=== PATIENT | male | born 1970 | race Caucasian/White ===

== ENCOUNTER 2024-03-17 14:43 | Outpatient (CLI) | payer OTHER | END 2024-03-17 14:44 | disposition home or self-care (01) | LOC: MRI 14:43 | PROVIDERS: ATTEND Family Medicine | DX: R20.2 Paresthesia of skin (principal); R90.82 White matter disease, unspecified | CPT/HCPCS: 70551 ==

== ENCOUNTER 2024-12-15 21:45 | Inpatient (IN) | payer OTHER ==
[2024-12-15] MEDS ORDERED: Cefepime 2 GM VIAL ONE (23:23)
[2024-12-15 23:33] LABS: #Basophils 0.04 10x3/uL (0.0-0.2); #Eosinophils 0.18 10x3/uL (0.0-0.7); #Monocytes 0.72 10x3/uL (0.11-0.59); #Neutrophils 11.50 10x3/uL (1.40-6.50); %Basophils 0.3 % (0.0-1.0); %Eosinophils 1.3 % (0.0-10.0); %Lymphocytes 10.9 % (21.0-51.0); %Monocytes 5.1 % (0.0-10.0); %Neutrophils 81.8 % (42.0-75.0); Hematocrit 35.7 % (42.0-52.0); Hemoglobin 11.8 g/dL (14.0-18.0); Mean Corpuscular Hemoglobin 31.4 pg (27.0-31.0); Mean Corpuscular Volume 94.9 fL (78.0-98.0); Platelet Count 284 10x3/uL (130-400); Red Blood Cell (RBC) Count 3.76 mill/uL (4.70-6.10); White Blood Cell (WBC) Count 14.05 10x3/uL (4.8-10.8)
[2024-12-15 23:47] LABS: ALT (SGPT) 20 U/L (Less than 45); AST (SGOT) 47 U/L (11-34); Albumin 3.4 g/dL (3.1-4.5); Alkaline Phosphatase 96 U/L (40-110); Anion Gap 17 mmol/L (10-20); BUN (Urea Nitrogen) 30 mg/dL (8.4-25.7); Bilirubin, Total 0.3 mg/dL (0.3-1.2); Calc. Creatinine Clearance 0 mL/min (70-130); Calcium 9.5 mg/dL (7.8-10.44); Carbon Dioxide 25 mmol/L (22-29); Chloride 100 mmol/L (98-107); Globulin 4.6 g/dL (2.4-3.5); Glucose 152 mg/dL (70-105); Potassium 4.5 mmol/L (3.5-5.1); Sodium 137 mmol/L (136-145)
[2024-12-16 01:28] LABS: Bacteria/HPF None Seen HPF (None Seen); CAUTI Indications for Culture Fever or rigors; Glucose, Urine (Dipstick) Greater than 1000 mg/dL (Negative); Leukocyte Negative Leu/uL (Negative); Protein, Urine (Dipstick) 10 mg/dL (Neg-Trace); RBC/HPF None Seen HPF (0-3); Specific Gravity, Urine 1.018 (1.002-1.036); WBC/HPF 0-3 HPF (0-3)
[2024-12-16 01:32] LABS: Urine Culture Reflex No No
[2024-12-16] MEDS ORDERED: Glucagon 1 MG/ML KIT IM PRN (02:19)
[2024-12-16] MEDS ORDERED: Dextrose 50% Abboject 50 ML SYRINGE SLOW IVP PRN (02:19)
[2024-12-16] MEDS ORDERED: Acetaminophen 325 MG TAB PO PRN (02:20)
[2024-12-16] MEDS ORDERED: Senokot S 8.6-50 MG TAB PO PRN (02:21)
[2024-12-16] MEDS ORDERED: Calcium Carbonate 500 MG ChewTAB PO PRN (02:21)
[2024-12-16] MEDS ORDERED: VANCOMYCIN IVPB PRN (02:23)
[2024-12-16 03:30] LABS: #Basophils 0.03 10x3/uL (0.0-0.2); #Eosinophils 0.15 10x3/uL (0.0-0.7); #Monocytes 0.69 10x3/uL (0.11-0.59); #Neutrophils 11.24 10x3/uL (1.40-6.50); %Basophils 0.2 % (0.0-1.0); %Eosinophils 1.1 % (0.0-10.0); %Lymphocytes 10.0 % (21.0-51.0); %Monocytes 5.1 % (0.0-10.0); %Neutrophils 82.8 % (42.0-75.0); Hematocrit 34.5 % (42.0-52.0); Hemoglobin 11.2 g/dL (14.0-18.0); Mean Corpuscular Hemoglobin 30.9 pg (27.0-31.0); Mean Corpuscular Volume 95.3 fL (78.0-98.0); Platelet Count 256 10x3/uL (130-400); Red Blood Cell (RBC) Count 3.62 mill/uL (4.70-6.10); White Blood Cell (WBC) Count 13.58 10x3/uL (4.8-10.8)
[2024-12-16] MEDS ORDERED: Acetaminophen/Codeine 30-300mg Tablet ONE (03:36)
[2024-12-16] MEDS: Acetaminophen/Codeine 30-300mg Tablet PO PRN (03:41)
[2024-12-16 03:42] LABS: Anion Gap 13 mmol/L (10-20); BUN (Urea Nitrogen) 27 mg/dL (8.4-25.7); Calc. Creatinine Clearance 0 mL/min (70-130); Calcium 9.0 mg/dL (7.8-10.44); Carbon Dioxide 24 mmol/L (22-29); Chloride 102 mmol/L (98-107); Glucose 149 mg/dL (70-105); Potassium 3.9 mmol/L (3.5-5.1); Sodium 135 mmol/L (136-145)
[2024-12-16] MEDS: VANCOMYCIN 2 GRAM/400 ML Premix BAG IVPB SCH (06:07)
[2024-12-16 07:38] VITALS: BMI 30.7
[2024-12-16] MEDS ORDERED: Lisinopril 20 MG TAB ONE (08:46)
[2024-12-16] MEDS ORDERED: cefTRIAXone (ROCEPHIN) 2 GM VIAL ONE (08:46)
[2024-12-16] MEDS ORDERED: Vancomycin 1 GM in Premix 1 BAG IVPB SCH (09:00)
[2024-12-16] MEDS: Lisinopril 20 MG TAB PO SCH ×2 (09:11→12:20)
[2024-12-16] MEDS: Clotrimazole 1 % Cream 30 GM TUBE TOP SCH (09:18)
[2024-12-16] MEDS: cefTRIAXone\\ROCEPHIN 2 GM in Sodium Chloride 0.9% 100 ML IVPB SCH (09:58)
[2024-12-16] MEDS ORDERED: hydrALAZINE 20 MG/ML VIAL SLOW IVP PRN (10:47)
[2024-12-16] MEDS: metFORMIN 500 MG TAB PO SCH ×2 (12:20→17:54)
[2024-12-16] MEDS ORDERED: Vancomycin 1.5 GM / NS 500 ML VIAL-2-BAG IVPB SCH (18:00)
[2024-12-16] MEDS: Linezolid 600 MG TAB PO SCH (21:12)
[2024-12-17] MEDS: Levothyroxine 150 MCG TAB PO SCH (05:29)
[2024-12-17 07:05] LABS: #Basophils 0.07 10x3/uL (0.0-0.2); #Eosinophils 0.17 10x3/uL (0.0-0.7); #Monocytes 0.76 10x3/uL (0.11-0.59); #Neutrophils 13.58 10x3/uL (1.40-6.50); %Basophils 0.4 % (0.0-1.0); %Eosinophils 1.1 % (0.0-10.0); %Lymphocytes 7.4 % (21.0-51.0); %Monocytes 4.8 % (0.0-10.0); %Neutrophils 85.5 % (42.0-75.0); Hematocrit 36.4 % (42.0-52.0); Hemoglobin 12.1 g/dL (14.0-18.0); Mean Corpuscular Hemoglobin 30.9 pg (27.0-31.0); Mean Corpuscular Volume 93.1 fL (78.0-98.0); Platelet Count 272 10x3/uL (130-400); Red Blood Cell (RBC) Count 3.91 mill/uL (4.70-6.10); White Blood Cell (WBC) Count 15.89 10x3/uL (4.8-10.8)
[2024-12-17 07:21] LABS: Vancomycin, Random 6.9 ug/mL (See Comment)
[2024-12-17 07:29] LABS: Anion Gap 14 mmol/L (10-20); BUN (Urea Nitrogen) 19 mg/dL (8.4-25.7); Calc. Creatinine Clearance 102 mL/min (70-130); Calcium 9.2 mg/dL (7.8-10.44); Carbon Dioxide 25 mmol/L (22-29); Cardiac Risk 6.3 (Less than 4.5); Chloride 97 mmol/L (98-107); Cholesterol 176 mg/dl (< 200 Desired); Glucose 104 mg/dL (70-105); HDL Cholesterol 28 mg/dL (>60 Neg Risk); LDL Cholesterol, Calculated 117 mg/dL; Potassium 4.0 mmol/L (3.5-5.1); Sodium 132 mmol/L (136-145); Triglycerides 157 mg/dL (Less than 150)
[2024-12-17 07:38] LABS: CRP, High Sensitivity at Bryan 18.65 mg/dL (< or = 0.5)
[2024-12-17] MEDS: Lisinopril 20 MG TAB PO SCH (09:14)
[2024-12-17] MEDS: HYDROcodone/Acetaminophen 7.5/325 mg Tablet PO PRN (09:23)
[2024-12-17] MEDS: Gabapentin 300 MG CAP PO SCH ×2 (12:24→20:16)
[2024-12-18 06:23] LABS: #Basophils 0.06 10x3/uL (0.0-0.2); #Eosinophils 0.30 10x3/uL (0.0-0.7); #Monocytes 0.77 10x3/uL (0.11-0.59); #Neutrophils 11.81 10x3/uL (1.40-6.50); %Basophils 0.4 % (0.0-1.0); %Eosinophils 2.0 % (0.0-10.0); %Lymphocytes 12.0 % (21.0-51.0); %Monocytes 5.2 % (0.0-10.0); %Neutrophils 79.1 % (42.0-75.0); Hematocrit 37.4 % (42.0-52.0); Hemoglobin 12.3 g/dL (14.0-18.0); Mean Corpuscular Hemoglobin 30.9 pg (27.0-31.0); Mean Corpuscular Volume 94.0 fL (78.0-98.0); Platelet Count 312 10x3/uL (130-400); Red Blood Cell (RBC) Count 3.98 mill/uL (4.70-6.10); White Blood Cell (WBC) Count 14.93 10x3/uL (4.8-10.8)
[2024-12-18] MEDS: Gabapentin 300 MG CAP PO SCH ×2 (10:45→19:53)
[2024-12-19 06:15] LABS: #Basophils 0.05 10x3/uL (0.0-0.2); #Eosinophils 0.31 10x3/uL (0.0-0.7); #Monocytes 0.58 10x3/uL (0.11-0.59); #Neutrophils 7.33 10x3/uL (1.40-6.50); %Basophils 0.5 % (0.0-1.0); %Eosinophils 3.1 % (0.0-10.0); %Lymphocytes 15.6 % (21.0-51.0); %Monocytes 5.8 % (0.0-10.0); %Neutrophils 73.4 % (42.0-75.0); Hematocrit 39.5 % (42.0-52.0); Hemoglobin 12.7 g/dL (14.0-18.0); Mean Corpuscular Hemoglobin 30.7 pg (27.0-31.0); Mean Corpuscular Volume 95.4 fL (78.0-98.0); Platelet Count 346 10x3/uL (130-400); Red Blood Cell (RBC) Count 4.14 mill/uL (4.70-6.10); White Blood Cell (WBC) Count 9.99 10x3/uL (4.8-10.8)
[2024-12-19] MEDS: Gabapentin 300 MG CAP PO SCH (14:54)
[2024-12-19] MEDS: Insulin Glargine 30 UNITS/0.3 ML VIAL SC SCH (20:04)
[2024-12-21 08:28] VITALS: BP 129/71; TEMP 98.6
== END 2024-12-21 14:06 | disposition home or self-care (01) | DRG 872 ==
LOC: ERS 21:45 → ERHOLD 12-16 00:49 → T4-B 12-16 10:11
PROVIDERS: ADMIT Internal Medicine; ATTEND Family Medicine
DX: A41.9 Sepsis, unspecified organism (principal); L03.115 Cellulitis of right lower limb; N17.9 Acute kidney failure, unspecified; E03.9 Hypothyroidism, unspecified; E78.5 Hyperlipidemia, unspecified; N18.30 Chronic kidney disease, stage 3 unspecified; E11.22 Type 2 diabetes mellitus with diabetic chronic kidney disease; I12.9 Hypertensive chronic kidney disease with stage 1 through stage 4 chronic kidney disease, or unspecified chronic kidney disease; K31.89 Other diseases of stomach and duodenum; B35.3 Tinea pedis; E11.42 Type 2 diabetes mellitus with diabetic polyneuropathy; R23.4 Changes in skin texture; Z98.890 Other specified postprocedural states
CPT/HCPCS: 36415; 36416; 80048; 80061; 80202; 81001; 83036; 83605; 84443; 85025; 86141; 87081; 87426; 96374; 96375; J0692; J0696; J1815; J3375